=== PATIENT | female | born 1970 | race Hispanic/Latino ===

== ENCOUNTER 2019-09-03 18:37 | Emergency (ER) | payer SELFPAY ==
[2019-09-03] MEDS ORDERED: Dexamethasone 10 MG/ML VIAL ONE (19:27)
[2019-09-03] MEDS ORDERED: Acetaminophen 500 MG TAB ONE (19:27)
[2019-09-03 19:34] LABS: #Basophils 0.1 thou/uL (0.0-0.2); #Eosinphils 0.3 thou/uL (0.0-0.7); #Lymphocytes 3.6 thou/uL (1.20-3.40); #Monocytes 0.6 thou/uL (0.11-0.59); #Neutrophils 5.3 thou/uL (1.40-6.50); %Basophils 0.6 % (0.0-1.0); %Monocytes 6.2 % (0.0-10.0); %Neutrophils 54.2 % (42.0-75.0); Hemoglobin 14.5 g/dL (12.0-16.0); Mean Corpuscular HGB CONC 34.2 g/dL (32.0-36.0); Mean Corpuscular Volume 87.6 fL (78.0-98.0); Mean Platelet Volume 9.5 fL (7.4-10.4); Platelet Count 243 thou/uL (130-400); RBC Distribution Width 14.1 % (11.5-14.5); Red Blood Cell (RBC) Count 4.84 mill/uL (4.20-5.40); White Blood Cell (WBC) Count 9.9 thou/uL (4.8-10.8)
[2019-09-03 19:53] LABS: ALT (SGPT) 35 U/L (8-55); AST (SGOT) 24 U/L (5-34); Albumin 3.7 g/dL (3.5-5.0); Alkaline Phosphatase 140 U/L (40-110); Anion Gap 11 mmol/L (10-20); BUN (Urea Nitrogen) 9 mg/dL (7.0-18.7); Bilirubin, Total Less than 0.2 mg/dL (0.2-1.2); Calc. Creatinine Clearance 0 mL/min (70-130); Calcium 9.2 mg/dL (7.8-10.44); Carbon Dioxide 24 mmol/L (22-29); Chloride 106 mmol/L (98-107); Estimated GFR-MDRD 84; Globulin 3.6 g/dL (2.4-3.5); Glucose 140 mg/dL (70-105); Lipase 49 U/L (8-78); Potassium 3.4 mmol/L (3.5-5.1); Protein, Total 7.3 g/dL (6.0-8.3); Sodium 138 mmol/L (136-145)
--- NOTE | 2019-09-03 20:06 | RAD ---
PORTABLE CHEST: 09/03/19 HISTORY: Left sided chest pain radiating to left shoulder. Heart size and mediastinum are within normal limits Some more linear parenchymal change in the left b ase suggestive of some atelectasis versus scarring. IMPRESSION: Linear parenchymal changes in the left breast probably related to scar. POS: MARGIE
--- NOTE | 2019-09-06 17:05 | EKG ---
Test Reason : Blood Pressure : / mmHG Vent. Rate : 071 BPM Atrial Rate : 071 BPM P-R Int : 156 ms QRS Dur : 102 ms QT Int : 410 ms P-R-T Axes : 055 -52 011 degrees QTc Int : 445 ms Normal sinus rhythm Left axis deviation Pulmonary disease pattern Incomplete right bundle branch block Septal infarct , age undetermined Abnormal ECG Confirmed by JUSTINA MORENO ([id number]), film or videotape editor KADEN NUNO ([id number]) on 09/06/2019 5:05:47 PM Referred By: Confirmed By:JUSTINA Valencia
== END 2019-09-03 22:10 | disposition home or self-care (01) ==
LOC: ERS 18:37
DX: M25.512 Pain in left shoulder (principal); M54.6 Pain in thoracic spine; J02.9 Acute pharyngitis, unspecified; F17.210 Nicotine dependence, cigarettes, uncomplicated
CPT/HCPCS: 36415; 71045; 80053; 83690; 84484; 85025; 93005; J1100

== ENCOUNTER 2022-10-24 20:53 | Emergency (ER) | payer SELFPAY ==
[2022-10-24] MEDS ORDERED: Diazepam 5 MG TAB ONE (22:03)
== END 2022-10-24 22:15 | disposition home or self-care (01) ==
LOC: ERS 20:53
DX: M54.42 Lumbago with sciatica, left side (principal); F17.210 Nicotine dependence, cigarettes, uncomplicated
CPT/HCPCS: 99283

== ENCOUNTER 2025-02-19 12:42 | Emergency (ER) | payer MEDICARE, SELFPAY | END 2025-02-19 16:22 | disposition home or self-care (01) | LOC: ERS 12:42 | DX: M25.572 Pain in left ankle and joints of left foot (principal); F17.210 Nicotine dependence, cigarettes, uncomplicated ==